=== PATIENT | female | born 1990 | race Caucasian/White ===

== ENCOUNTER 2019-01-05 19:34 | Emergency (ER) | payer OTHER ==
[2019-01-05 19:41] VITALS: BP 124/87; PULSE 70; TEMP 99.6; BMI 27.4
[2019-01-05] MEDS ORDERED: predniSONE 20 MG TABLET (UD) PO ONE (20:26)
[2019-01-05] MEDS ORDERED: predniSONE 20 MG TABLET (UD) ONE (20:29)
--- NOTE | 2019-01-05 20:29 | PDOC ---
Documentation entered by Brisa Carballo SCRIBE, acting as scribe for Bettina White MD. Bettina White MD: This documentation has been prepared by the Haris rios Aiswarya, SCRIBE, under my direction and personally reviewed by me in its entirety. I confirm that the documentation accurately reflects all work, treatment, procedures, and medical decision making performed by me. History of Present Illness - General Chief Complaint: Redness To Affected Area Stated Complaint: LT HAND BITES/REDNESS/SWELLING Time Seen by Provider: 01/05/19 19:35 History Source: Patient Exam Limitations: No Limitations - History of Present Illness Initial Comments: 01/05/19 19:53 Assessment and plan: This is a 28-year-old female who comes in with 2 complaints one is she has a couple of bites on her left upper extremity that appeared to be a localized histamine reaction to the bug bite. In addition to that patient is also complaining of some productive sputum with coughing. Patient was not noted to be coughing here in the emergency room and when I have her take deep breath she did not cough her lungs are clear however a chest x- ray was obtained as she does say that the sputum is green and she has been feeling more fatigued and thinks she may have had a fever. Her temperature here was 99.6. 01/05/19 20:10 Throat is negative for any acute pathology. Patient given prednisone and discharged told to follow-up with her primary care doctor and take over-the- counter Sheyla or Claritin for the itching and reaction The patient is a 28 year old female, with no significant PMH, who presents to the emergency department for evaluation of left arm bites that occurred today. The patient states bites are pruritic, erythematous, and swollen in nature, located to upper left arm and dorsum of the left hand. The patient also mentions having a production cough with green phlegm and increased fatigue.The patient denies any numbness or tingling. Denies shortness of breath, headache and dizziness.Denies fever, chills, nausea, vomit, diarrhea and constipation. PAST MEDICAL HISTORY: no significant history PAST SURGICAL HISTORY: no significant history FAMILY HISTORY: no pertinent history SOCIAL HISTORY: Pt lives with family and is employed. MEDICATIONS: reviewed ALLERGIES: As per nursing notes Adult ROS General: No fevers or chills, no weakness, no weight loss HEENT: No change in vision. No sore throat,. No ear pain CardioVascular: No chest pain or shortness of breath Respiratory:+cough. No wheezing. Gastrointestinal: no nausea, vomiting, diarrhea or constipation, No rectal bleeding Genitourinary: No dysuria, hematuria, or frequency Musculoskeletal: No joint or muscle pain or swelling Neurologic: No headache, vertigo, dizziness or loss of consciousness Psychiatric: nor depression Skin:+swelling of the left upper and dorsum arm Endocrine: no increased thirst or abnormal weight change Allergic: no skin or latex allergy All other systems reviewed and normal Basic PE GENERAL: The patient is awake, alert, and fully oriented, in no acute distress. HEAD: Normal with no signs of trauma. Respiratory: Lungs clear to auscultation bilateral Chest: Nontender to palpation EYES: Pupils equal, round and reactive to light, extraocular movements intact, sclera anicteric, conjunctiva clear. EXTREMITIES: Normal range of motion, no edema. NEUROLOGICAL: Normal speech, normal gait. PSYCH: Normal mood, normal affect. SKIN: +Left upper arm area erythema, mild swelling and slight increase of warmth. No purulent discharge from bite. +Dorsum left hand swelling and slight increased in warmth. No evidence of infection from the bite. Neurovascular intact. Warm, Dry, normal turgor, no rashes or lesions noted. 01/05/19 20:27 X-ray no acute pathology Past History - Past Medical History Allergies/Adverse Reactions: Allergies Allergy/AdvReac Type Severity Reaction Status Date / Time No Known Allergies Allergy Verified 08/15/16 20:10 Home Medications: Ambulatory Orders NK [No Known Home Medication] 01/05/19 COPD: No - Immunization History Immunization Up to Date: Yes - Suicide/Smoking/Psychosocial Hx Smoking History: Never smoked Have you smoked in the past 12 months: No Hx Alcohol Use: No Drug/Substance Use Hx: No Substance Use Type: None *Physical Exam - Vital Signs Last Vital Signs Temp Pulse Resp BP Pulse Ox 99.6 F 70 16 124/87 100 01/05/19 19:35 01/05/19 19:35 01/05/19 19:35 01/05/19 19:35 01/05/19 19:35 ED Treatment Course - RADIOLOGY Radiology Studies Ordered: Category Date Time Status CHEST PA & LAT [RAD] Stat Radiology 01/05/19 19:46 Ordered *DC/Admit/Observation/Transfer Diagnosis at time of Disposition: Insect bite Qualifiers: Encounter type: initial encounter Site of insect bite: hand - Discharge Dispostion Disposition: HOME Condition at time of disposition: Stable Decision to Admit order: No - Referrals - Patient Instructions Additional Instructions: Tylenol or Motrin as needed for pain. For the itching and redness take an antihistamine you can take Sheyla or Claritin as it is long acting and only has to be taken once a day. Return to the emergency department immediately with ANY new, persistent or worsening symptoms. Continue any medications as previously prescribed by your physician. You should follow up with your primary doctor as soon as possible regarding today's emergency department visit. . Please make sure your doctor reviews the results of your emergency evaluation. Thank you for coming to the Emergency Department today for your care. It was a pleasure to see you today. Please note that your evaluation is INCOMPLETE until you follow-up with your doctor. - Post Discharge Activity
== END 2019-01-05 20:33 | disposition home or self-care (01) ==
LOC: FER 19:34
DX: W57.XXXA Bitten or stung by nonvenomous insect and other nonvenomous arthropods, initial encounter (principal); Y93.89 Activity, other specified; Y92.89 Other specified places as the place of occurrence of the external cause
CPT/HCPCS: 71046-TC-FY; 99281-25